=== PATIENT | female | born 1960 | race Caucasian/White ===

== ENCOUNTER 2023-06-11 21:40 | Observation (INO) ==
[2023-06-11] MEDS ORDERED: IOPAMIDOL 100 ML BOTTLE IV ONE (21:41)
[2023-06-11 22:13] LABS: Basophils # (Auto) 0.01 K/mcL (0.00-0.30); Basophils % (Auto) 0.1 % (0.0-2.0); Eosinophils # (Auto) 0.09 K/mcL (0.00-0.70); Eosinophils % (Auto) 0.6 % (0.0-7.0); Hematocrit 39.9 % (34.1-44.9); Hemoglobin 13.3 g/dL (11.2-15.7); Lymphocytes # (Auto) 1.13 K/mcL (1.50-4.80); Lymphocytes % (Auto) 8.1 % (15.5-49.0); Mean Cell Volume 91.7 fL (80.0-100.0); Mean Corpuscular HGB Conc 33.3 g/dL (31.0-36.0); Mean Platelet Volume 9.7 fL (8.8-12.5); Monocytes # (Auto) 0.81 K/mcL (0.10-0.90); Monocytes % (Auto) 5.8 % (1.0-12.0); Neutrophils % (Auto) 85.1 % (38.0-78.0); Platelet Count 287 K/mcL (140-440); RBC 4.35 M/mcL (3.59-5.38); Red Cell Distribution Width 12.9 % (11.5-14.5)
[2023-06-11 22:24] LABS: POC Calcium, Ionized 1.14 (1.16-1.32); POC Creatinine 0.9 (0.6-1.2); POC Potassium 3.3 (3.3-5.1)
[2023-06-11 22:37] LABS: ALT/SGPT 16 U/L (<40); AST/SGOT 19 U/L (<32); Albumin 4.3 gm/dL (3.2-5.2); Albumin/Globulin Ratio 1.5 (1.0-2.3); Alkaline Phosphatase 72 U/L (39-117); Bilirubin,Total 0.6 mg/dL (0.1-1.0); Blood Urea Nitrogen 17 mg/dL (8-23); Calcium 9.4 mg/dL (8.6-10.4); Carbon Dioxide 26 mmol/L (22-30); Chloride 98 mmol/L (96-108); Globulin 2.9 gm/dL (2.2-3.7); Glomerular Filtration Rate 68; Glucose 140 mg/dL (70-105)
[2023-06-11] MEDS ORDERED: ONDANSETRON 4 MG/2 ML VIAL IV ONE (22:38)
[2023-06-11] MEDS ORDERED: HYDROcodone/APAP 5/325MG TABLET PO ONE (23:00)
[2023-06-11 23:01] LABS: Partial Thromboplastin Time 28.8 sec (20.0-37.0)
[2023-06-11] MEDS ORDERED: morphine 4 MG/ML VIAL IV ONE (23:22)
[2023-06-11 23:53] LABS: Amylase 48 U/L (28-100)
[2023-06-12] MEDS ORDERED: morphine 4 MG/ML VIAL IV ONE (00:42)
[2023-06-12] MEDS ORDERED: KETOROLAC 30 MG/ML VIAL IV ONE ×2 (03:25→04:59)
[2023-06-12] MEDS ORDERED: cefTRIAXone 1 GM VIAL IV ONE (06:06)
[2023-06-12] MEDS ORDERED: metroNIDAZOLE 500 MG/100 ML BAG IV ONE (06:06)
[2023-06-12] MEDS ORDERED: ONDANSETRON 4 MG/2 ML VIAL IV ONE (06:39)
[2023-06-12] MEDS ORDERED: fentaNYL 100 MCG/2 ML VIAL IV ONE (06:50)
[2023-06-12] MEDS ORDERED: PROMETHAZINE 25 MG/ML VIAL IV ONE (08:25)
[2023-06-12] MEDS ORDERED: HYDROmorphone 0.5 MG/0.5 ML SYRINGE IV ONE (11:31)
[2023-06-12] MEDS ORDERED: HYDROmorphone 0.5 MG/0.5 ML SYRINGE IV PRN (13:01)
[2023-06-12] MEDS: DEXTROSE 5%-1/2NS W/10MEQ KCL 1,000 ML IV SCH ×2 (13:36→23:24)
[2023-06-12] MEDS: ONDANSETRON 4 MG/2 ML VIAL IV PRN (14:08)
[2023-06-12] MEDS: PANTOPRAZOLE 40 MG VIAL IV SCH ×2 (14:08→16:40)
[2023-06-12] MEDS: PIPERACILLIN SODIUM/TAZOBACTAM 3.375 GM in DEXTROSE 5% IN WATER 100 ML IV SCH ×2 (15:56→23:24)
[2023-06-12] MEDS: oxyCODONE IR 5 MG TABLET PO SCH ×3 (16:14→23:25)
[2023-06-12] MEDS ORDERED: ACETAMINOPHEN 650 MG/65 ML BAG IV PRN (18:54)
[2023-06-12] MEDS ORDERED: LISINOPRIL 20 MG TABLET PO SCH (19:14)
[2023-06-12] MEDS ORDERED: ACETAMINOPHEN 650 MG/65 ML BAG IV SCH (19:15)
[2023-06-13] MEDS: oxyCODONE IR 5 MG TABLET PO SCH ×3 (03:59→12:24)
[2023-06-13 06:43] LABS: Hematocrit 39.7 % (34.1-44.9); Mean Cell Volume 92.1 fL (80.0-100.0); Mean Corpuscular HGB Conc 32.7 g/dL (31.0-36.0); Platelet Count 257 K/mcL (140-440); RBC 4.31 M/mcL (3.59-5.38); Red Cell Distribution Width 13.2 % (11.5-14.5); WBC 17.2 K/mcL (4.5-11.0)
[2023-06-13] MEDS: PIPERACILLIN SODIUM/TAZOBACTAM 3.375 GM in DEXTROSE 5% IN WATER 100 ML IV SCH ×3 (06:51→21:36)
[2023-06-13] MEDS: PANTOPRAZOLE 40 MG VIAL IV SCH (06:52)
[2023-06-13] MEDS: ONDANSETRON 4 MG/2 ML VIAL IV PRN (06:52)
[2023-06-13] MEDS ORDERED: fentaNYL 100 MCG/2 ML VIAL IV ONE (07:48)
[2023-06-13] MEDS ORDERED: PROPOFOL 200 MG/20 ML VIAL IV ONE (07:48)
[2023-06-13] MEDS ORDERED: ROCURONIUM 10 MG/ML ML IV ONE ×2 (07:49→07:50)
[2023-06-13] MEDS ORDERED: ONDANSETRON 4 MG/2 ML VIAL ONE (07:49)
[2023-06-13] MEDS ORDERED: SCOPOLAMINE 1 PATCH PATCH TOPICAL PRN (08:00)
[2023-06-13] MEDS ORDERED: IPRATROPIUM/ALBUTEROL 3 ML AMPUL.NEB NEB PRN ×2 (08:00→11:22)
[2023-06-13 08:11] LABS: ALT/SGPT 22 U/L (<40); AST/SGOT 29 U/L (<32); Albumin 3.3 gm/dL (3.2-5.2); Albumin/Globulin Ratio 1.1 (1.0-2.3); Alkaline Phosphatase 65 U/L (39-117); Bilirubin,Total 1.3 mg/dL (0.1-1.0); Blood Urea Nitrogen 24 mg/dL (8-23); Calcium 8.5 mg/dL (8.6-10.4); Carbon Dioxide 27 mmol/L (22-30); Chloride 97 mmol/L (96-108); Glomerular Filtration Rate 48; Glucose 121 mg/dL (70-105)
[2023-06-13] MEDS ORDERED: POTASSIUM CHLORIDE 40 MEQ in DEXTROSE 5% IN WATER 500 ML IV SCH (08:15)
[2023-06-13] MEDS ORDERED: PHENYLephrine 1 MG/10 ML SYRINGE (ANEST) ONE (08:42)
[2023-06-13] MEDS ORDERED: DEXAMETHASONE 10 MG/ML VIAL ONE (09:07)
[2023-06-13] MEDS ORDERED: HYDROmorphone 1 MG/ML SYRINGE ONE (10:45)
[2023-06-13] MEDS ORDERED: SUGAMMADEX SODIUM 200 MG/2 ML VIAL IV ONE (11:20)
[2023-06-13] MEDS ORDERED: METHOCARBAMOL 1,000 MG/10 ML VIAL IV PRN (11:22)
[2023-06-13] MEDS ORDERED: HYDROmorphone 0.5 MG/0.5 ML SYRINGE IV PRN (11:22)
[2023-06-13] MEDS ORDERED: ONDANSETRON 4 MG/2 ML VIAL IV PRN (11:22)
[2023-06-13] MEDS ORDERED: NALOXONE HCL 0.4 MG/ML VIAL IV PRN (11:22)
[2023-06-13] MEDS ORDERED: PROMETHAZINE 25 MG/ML VIAL IV PRN (11:22)
[2023-06-13] MEDS: fentaNYL 100 MCG/2 ML VIAL IV PRN ×4 (11:56→12:05)
[2023-06-13] MEDS: DEXTROSE 5%-1/2NS W/10MEQ KCL 1,000 ML IV SCH ×2 (13:56→17:51)
[2023-06-13] MEDS ORDERED: oxyCODONE IR 5 MG TABLET PO PRN (15:02)
[2023-06-14] MEDS: DEXTROSE 5%-1/2NS W/10MEQ KCL 1,000 ML IV SCH ×2 (04:15→17:43)
[2023-06-14] MEDS: PANTOPRAZOLE 40 MG VIAL IV SCH (07:59)
[2023-06-14] MEDS: PIPERACILLIN SODIUM/TAZOBACTAM 3.375 GM in DEXTROSE 5% IN WATER 100 ML IV SCH ×3 (08:21→21:11)
[2023-06-14 08:59] LABS: Hematocrit 36.8 % (34.1-44.9); Mean Cell Volume 93.4 fL (80.0-100.0); Mean Corpuscular HGB Conc 32.6 g/dL (31.0-36.0); Mean Platelet Volume 9.8 fL (8.8-12.5); Platelet Count 269 K/mcL (140-440); RBC 3.94 M/mcL (3.59-5.38); WBC 13.9 K/mcL (4.5-11.0)
[2023-06-14 09:38] LABS: ALT/SGPT 147 U/L (<40); AST/SGOT 189 U/L (<32); Albumin 3.4 gm/dL (3.2-5.2); Alkaline Phosphatase 67 U/L (39-117); Bilirubin,Total 0.5 mg/dL (0.1-1.0); Blood Urea Nitrogen 20 mg/dL (8-23); Calcium 8.5 mg/dL (8.6-10.4); Carbon Dioxide 28 mmol/L (22-30); Chloride 100 mmol/L (96-108); Globulin 3.3 gm/dL (2.2-3.7); Glomerular Filtration Rate 60; Glucose 114 mg/dL (70-105)
[2023-06-15] MEDS: DEXTROSE 5%-1/2NS W/10MEQ KCL 1,000 ML IV SCH (02:09)
[2023-06-15] MEDS: PIPERACILLIN SODIUM/TAZOBACTAM 3.375 GM in DEXTROSE 5% IN WATER 100 ML IV SCH (05:34)
[2023-06-15 06:17] LABS: Hematocrit 33.5 % (34.1-44.9); Hemoglobin 10.9 g/dL (11.2-15.7); Mean Cell Volume 93.8 fL (80.0-100.0); Mean Corpuscular HGB Conc 32.5 g/dL (31.0-36.0); Mean Platelet Volume 10.1 fL (8.8-12.5); Platelet Count 260 K/mcL (140-440); RBC 3.57 M/mcL (3.59-5.38); WBC 8.4 K/mcL (4.5-11.0)
[2023-06-15] MEDS: PANTOPRAZOLE 40 MG VIAL IV SCH (08:21)
[2023-06-15 10:04] LABS: ALT/SGPT 292 U/L (<40); AST/SGOT 322 U/L (<32); Albumin/Globulin Ratio 1.2 (1.0-2.3); Alkaline Phosphatase 63 U/L (39-117); Bilirubin,Total 0.3 mg/dL (0.1-1.0); Blood Urea Nitrogen 20 mg/dL (8-23); Calcium 8.2 mg/dL (8.6-10.4); Carbon Dioxide 26 mmol/L (22-30); Chloride 105 mmol/L (96-108); Globulin 2.6 gm/dL (2.2-3.7); Glomerular Filtration Rate 60; Glucose 97 mg/dL (70-105)
== END 2023-06-15 14:30 | disposition home or self-care (01) ==
LOC: ED 21:40 → INTOOBSV 06-12 13:24 → MEDSUR 06-12 13:27
PROVIDERS: ADMIT Surgery Surgical Critical Care; ATTEND Surgery Surgical Critical Care